=== PATIENT | female | born 1970 | race Caucasian/White ===

== ENCOUNTER → 2018-12-16 | Day surgery (SDC) | payer BC ==
[~2018-12-16] MED LIST: BACITRACIN 50,000 UNIT VIAL ONE; CEFAZOLIN SOD 1 GM/NS 50ML 50 ML IV ONE; DEXAMETHASONE SOD PHOS INJ 4 MG/ML VIAL ONE; FENTANYL CITRATE/PF 100MCG/2 ML INJ ONE; KETOROLAC TROMETHAMINE 30 MG/ML VIAL ONE; LIDOCAINE HCL 2% LOCAL INJ 5 ML SDV VIAL INJ ONE; MEPERIDINE HCL INJ 25 MG/ML VIAL ONE; MIDAZOLAM HCL 2 MG/2 ML VIAL ONE; ONDANSETRON HCL INJ 2MG/ML 2ML 2 MG/ML VIAL ONE; PROPOFOL IV EMULSION 10 MG/ML 20 ML VIAL ONE; ROCURONIUM BROMIDE 10 MG/ML 5ML VIAL ONE; SEVOFLURANE INHAL SOLN 250 ML PEN BTL ONE; TAMOXIFEN CITRA20 MG PO
--- OUTSIDE RECORDS SUMMARY | 2018-12-16 06:37 | XMS REPORT ---
Author Author [facility] Address Unknown Phone Unavailable Care Team Providers Care Auto Inspector Name Role Phone Unavailable Unavailable Payers Payer Name Policy Type Policy Number Effective Date Expiration Date Problems This patient has no known problems. Allergies, Adverse Reactions, Alerts Allergy Name Allergy Type Status Severity Reaction(s) Onset Date Inactive Date Treating Clinician Comments adhesive DA Active AK 2017-06-24 00:00:00 Medications This patient has no known medications.
--- OUTSIDE RECORDS SUMMARY | 2018-12-16 06:37 | XMS REPORT | Clinical Summary ---
Author Author [facility] Address Unknown Phone Unavailable Care Team Providers Care Printing Plate Setter Name Role Phone Jaelyn Tucker MD PCP Allergies Comments Active Allergy Reactions Severity Noted Date Adhesive Tape-Silicones 09/22/2016 Medications End Date Status Medication Sig Dispensed Refills Start Date Active furosemide (LASIX) 20 MG Take 20 mg by 0 tablet mouth daily. Active tamoxifen (NOLVADEX) 20 0 MG chemo tablet 6 Active VYVANSE 30 mg capsule Take 30 mg by 0 mouth once 7 daily. Active montelukast (SINGULAIR) Take 10 mg by 1 10 mg tablet mouth daily. 8 Active AFLURIA QUAD [id number], TO BE 0 PF, 60 mcg/0.5 mL syringe ADMINISTERED 8 BY PHARMACIST FOR IMMUNIZATION 10/01/2018 Discontinued dextroamphetamine-ampheta Take 10 mg by 0 mine (ADDERALL) 10 mg mouth 2 (two) tablet times a day. 01/15/2018 Discontinued tamsulosin (FLOMAX) 0.4 Take 1 30 capsule 0 mg capsule,extended capsule (0.4 7 release 24hr mg total) by mouth daily. Active Problems Problem Noted Date History of UTI 02/12/2017 Kidney stones 01/28/2017 Hydronephrosis with urinary obstruction due to renal calculus 01/28/2017 Acute pyelonephritis 01/28/2017 Encounters Care Team Description Date Type Specialty Jono Joy MA 10/08/2018 Telephone Obstetrics and Gynecology Debbie Ho MD Well woman exam with routine gynecological exam (Primary Dx) 10/01/2018 Office Visit Obstetrics and Gynecology Pili Damico RN Cyst of right ovary (Primary Dx) 04/22/2018 Orders Only Obstetrics and Gynecology Aguila Bansal MA 01/27/2018 Telephone Obstetrics and Gynecology Pili Damico RN 01/25/2018 Telephone Obstetrics and Gynecology Robbi Cross MD Cervical lesion (Primary Dx); Use of tamoxifen (Nolvadex); Personal history of breast cancer; Pre-procedure lab exam 01/21/2018 Office Visit Obstetrics and Gynecology Robbi Cross MD Cyst of right ovary 01/15/2018 Procedure visit Obstetrics and Gynecology Robbi Cross MD RLQ abdominal pain (Primary Dx); Pap smear for cervical cancer screening; Use of tamoxifen (Nolvadex); Cyst of right ovary; Lesion of cervix 01/15/2018 Office Visit Obstetrics and Gynecology after 12/15/2017 Family History Medical History Relation Name Comments Cancer Cousin Maternal Anal Cousin No Known Problems Father No Known Problems Mother Breast cancer Other Paternal cousin Breast cancer Paternal Aunt Relation Name Status Comments Cousin Maternal Alive Cousin Father Alive Mother Alive Other Paternal Alive cousin Paternal Aunt Paternal Grandmother Social History Date Tobacco Use Types Packs/Day Years Used Never Smoker Smokeless Tobacco: Never Used Tobacco Cessation: Counseling Given: Yes Alcohol Use Drinks/Week oz/Week Comments Yes once month Sex Assigned at Date Recorded Not on file Industry Job Start Date Occupation Not on file Not on file Not on file Travel End Travel History Travel Start No recent travel history available. Last Filed Vital Signs Time Taken Vital Sign Reading 10/01/2018 11:30 AM CDT Blood Pressure 95/66 10/01/2018 11:30 AM CDT Pulse 106 01/21/2018 3:18 PM BLOOD BANK SUPERVISOR Temperature 37 C (98.6 F) - Respiratory Rate - - Oxygen Saturation - - Inhaled Oxygen - Concentration 10/01/2018 11:30 AM CDT Weight 55.8 kg (123 lb) 10/01/2018 11:30 AM CDT Height 152.4 cm (5') 10/01/2018 11:30 AM CDT Body Mass Index 24.02 Plan of Treatment Health Maintenance Due Date Last Done Comments CERVICAL CANCER SCREENING 1991 INFLUENZA VACCINE 06/30/2018 Procedures Comments Procedure Name Priority Date/Time Associated Diagnosis HPV MRNA E6/E7 REFLEX Routine 10/01/2018 HPV 16, 18/45 (REFLEX) 12:18 PM CDT THINPREP TIS PAP Routine 10/01/2018 12:18 PM CDT POC , URINE Routine 01/21/2018 Pre-procedure lab exam 3:56 PM BLOOD BANK SUPERVISOR TISSUE, SPECIMEN B Routine 01/21/2018 3:54 PM BLOOD BANK SUPERVISOR SURGICAL PATHOLOGY Routine 01/21/2018 Cervical lesion REQUEST 3:54 PM BLOOD BANK SUPERVISOR Use of tamoxifen (Nolvadex) Personal history of breast cancer TISSUE, SPECIMEN A Routine 01/21/2018 3:54 PM BLOOD BANK SUPERVISOR BIOPSY CERVIX Routine 01/21/2018 Cervical lesion 3:00 PM BLOOD BANK SUPERVISOR US PELVIS COMPLETE (AMB Routine 01/15/2018 Cyst of right ovary IN-CLINIC ONLY) 11:18 AM BLOOD BANK SUPERVISOR HPV MRNA E6/E7 REFLEX Routine 01/15/2018 HPV 16, 18/45 (REFLEX) 10:10 AM BLOOD BANK SUPERVISOR THINPREP TIS PAP Routine 01/15/2018 10:10 AM BLOOD BANK SUPERVISOR PAP W/AGE BASED SCREENING Routine 01/15/2018 RLQ abdominal pain PROTOCOLS 10:10 AM BLOOD BANK SUPERVISOR Pap smear for cervical cancer screening Use of tamoxifen (Nolvadex) after 12/15/2017 Results * HPV mRNA E6/E7 REFLEX HPV 16, 18/45 (10/01/2018 12:18 PM CDT) Only the most recent of 2 results within the time period is included. HPV mRNA e6/e7 Not Detected Not Detected [facility] Comment: WIN This test was performed using the APTIMA HPV Assay ([employer] This assay detects E6/E7 viral messenger RNA (mRNA) from 14 high-risk HPV types (16,18,31,33,35,39,45,51,52,56 ,58,59,66,68). The analytical performance characteristics of this assay have been determined by [facility]. The modifications have not been cleared or approved by the FDA. This assay has been validated pursuant to the CLIA regulations and is used for clinical purposes. Resulting Agency Comment Performing Organization Information: Site ID: [id number] Name: [facility] Address: [address] [place] [phone] Director: Vinod Jordan Performing Organization Address [facility] Phone Number YISSEL TELLES [place] [phone] * THINPREP TIS PAP (10/01/2018 12:18 PM CDT) Only the most recent of 2 results within the time period is included. Clinical information None given [facility] [place] Date of last menstrual NONE GIVEN [facility] period CARRILL[place] Prev. pap: NONE GIVEN [facility] [place] Prev. bx: NONE GIVEN [facility] [place] Source [facility] [place] Statement of adequacy Comment: [facility] Satisfactory for evaluation. [place] Endocervical/transformation zone component present. Age and/or menstrual status not provided Interpretation/result: Comment: Negative for [facility] intraepithelial lesion or [place] malignancy. Comment Comment: [facility] This Pap test has been [place] evaluated with computer assisted technology. Fine Chemicals Operator Comment: [facility] LLL,CT(ASCP) [place] CT screening location: [place] [id number] Comment Comment: [facility] EXPLANATORY NOTE: [place] The Pap is a screening test for cervical cancer. It is not a diagnostic test and is subject to false negative and false positive results. It is most reliable when a satisfactory sample, regularly obtained, is submitted with relevant clinical findings and history, and when the Pap result is evaluated along with historic and current clinical information. Resulting Agency Comment Performing Organization Information: Site ID: [id number] Name: [facility] Address: [address] [place] [phone] Director: Vinod Jordan Performing Organization Address City/[facility] Phone Number YISSEL TELLES [address] [phone] * POC , urine (01/21/2018 3:56 PM BLOOD BANK SUPERVISOR) test urine, POC Negative QC done No Specimen Urine * Tissue, Specimen B (01/21/2018 3:54 PM BLOOD BANK SUPERVISOR) Source Comment: [facility] Cervix [place] AT 9:00 Procedure Comment: Biopsy [facility] [place] Gross description: Comment: [facility] Cervix 9 o'clock, received in [place] formalin, verified as to the patient's name and consists of one fragment(s) of rubbery, hare-rivera, glistening tissue, measuring 0.55 x 0.2 x 0.1 cm.TS, one block. SK 01/21/2018 Micro description Comment: [facility] Microscopic examination [place] supports the above diagnosis. Diagnosis Comment: [facility] Squamous mucosa with reactive [place] squamous changes. No evidence of dysplasia or malignancy. Comment Comment: [facility] There is no previous abnormal [place] pap smear available in our files for review with the current specimen. If this is in error, contact the laboratory to request a review. Resulting Agency Comment Performing Organization Information: Site ID: [id number] Name: [facility] Address: [address] [place] [phone] Director: Vinod Jordan MD Performing Organization Address [facility] Hospitalcode [place] [address] * TISSUE, SPECIMEN A (01/21/2018 3:54 PM BLOOD BANK SUPERVISOR) Source Comment: [facility] Cervix [place] AT 5:00 Procedure Comment: Biopsy [facility] [place] Gross description: Comment: [facility] Cervix 5 o'clock, received in [place] formalin, verified as to the patient's name and consists of one fragment(s) of rubbery, hare-rivera, glistening tissue, measuring 0.2 x 0.1 x 0.1 cm.TS, one block. Gross exam(s) performed at: [facility] [address] [phone] Swing Grinder: VINOD JORDAN M.D. Micro description Comment: [facility] Microscopic examination [place] supports the above diagnosis. Diagnosis Comment: [facility] Cervical mucosa with reactive [place] squamous changes in a background of acute and chronic inflammation, no evidence of dysplasia or malignancy. Resulting Agency Comment Performing Organization Information: Site ID: [id number] Name: [facility] Address: [address] [place] [phone] Director: Vinod Jordan MD Performing Organization Address [facility] Hospitalcode [place] [address] * Surgical pathology request (01/21/2018 3:54 PM BLOOD BANK SUPERVISOR) Clinical information Comment: None given [facility] [place] Pathologist Comment: [facility] Vinod Jordan MD, [facility] Certified in Anatomic Pathology, [phone] (electronic signature) Specimen Tissue Resulting Agency Comment Performing Organization Information: Site ID: [id number] Name: [facility] Address: [address] [place] [address] Director: Vinod Jordan MD Performing Organization Address City/State/Zipcode Phone Number YISSEL TELLES [place] [address] [place] [phone] * Biopsy cervix (01/21/2018 3:00 PM BLOOD BANK SUPERVISOR) Narrative Performed At Robbi Cross MD 01/21/20184:44 PM Biopsy cervix Date/Time: 01/21/2018 3:27 PM Performed by: ROBBI CROSS Authorized by: ROBBI CROSS Consent: Written consent obtained. Consent given by: patient Patient understanding: patient states understanding of the procedure being performed Patient consent: the patient's understanding of the procedure matches consent given Procedure consent: procedure consent matches procedure scheduled Relevant documents: relevant documents present and verified Test results: test results available and properly labeled Patient identity confirmed: verbally with patient Time out: Immediately prior to procedure a "time out" was called to verify the correct patient, procedure, equipment, desktop support consultant and site/side marked as required. Preparation: Patient was prepped and draped in the usual sterile fashion. Local anesthesia used: no Anesthesia: Local anesthesia used: no Sedation: Patient sedated: no Patient tolerance: Patient tolerated the procedure well with no immediate complications Comments: No acetowhitening on acetic acid application At 5 o' clock the biopsy drained copius mucus discharge, likely nabothian cyst * US Pelvis Complete (HMSJ and AMB In-Clinic ONLY) (01/15/2018 11:18 AM BLOOD BANK SUPERVISOR) Narrative Performed At [facility] Uterus: 9.6cm Normal essure tubes visualized within uterus Endometrium: 1.45mm Right Ovary: 3.2cm 2.9cm simple right ovarian cyst with adjacent free fluid Left Ovary: 2cm Bilateral adnexa normal. Performing Organization Address City/[facility]/Zipcode Phone Number [facility] [address] [place] [address] * PAP W/AGE BASED SCREENING PROTOCOLS (01/15/2018 10:10 AM BLOOD BANK SUPERVISOR) Comment Comment: [facility] This order for age-based [facility]IGIST cervical cancer and STI II screening follows ACOG guidelines(PB 168, 140, UYS895). See individual assays for performing site location. Specimen Cervical Resulting Agency Comment Performing Organization Information: Site ID: [id number] Name: [facility] Address: [address] [place] [address] Director: Dr. Fuad Sandoval Performing Organization Address City/State/[facility] Phone Number YISSEL BOBO [address] [place] [address] II after 12/15/2017 Insurance Payer Benefit Subscriber ID Type Phone Address Plan / Group BCBS BCBS xxxxxxxxxxxx PPO CHOICE PPO/ADRIAN BABIN PPO Advance Directives Patient has advance care planning documents on file. For more information, thanh perez contact: Win Davis [address] [place] [address]
[2018-12-16 08:25] LABS: BASOPHILS % 0.5 % (0.0-1.0); EOSINOPHILS % 0.6 % (0.0-6.0); HEMOGLOBIN 12.8 g/dL (12.0-16.0); LYMPHOCYTES # (AUTO) 2.1 (1.0-3.2); LYMPHOCYTES % 31.5 % (18.0-39.1); MEAN CORPUSCULAR HEMOGLOBIN 31.4 pg (28-32); MEAN CORPUSCULAR HGB CONC 34.6 g/dL (31-35); MEAN CORPUSCULAR VOLUME 90.7 fL (81-99); MONOCYTES # (AUTO) 0.4 (0.2-0.8); MONOCYTES % 6.7 % (4.4-11.3); NEUTROPHILS % 60.4 % (38.7-80.0); PLATELET COUNT 234 x10e3/uL (140-360); RED BLOOD COUNT 4.08 x10e6/uL (3.6-5.1); RED CELL DISTRIBUTION WIDTH 12.2 % (11.7-14.4)
[2018-12-16 08:39] LABS: INR 0.93; PARTIAL THROMBOPLASTIN TIME 26.6 seconds (23.8-35.5); PROTHROMBIN TIME 13.3 seconds (11.9-14.5)
[2018-12-16 08:45] LABS: ALANINE AMINOTRANSFERASE 15 IU/L (0-55); ALBUMIN 3.9 g/dL (3.5-5.0); ALBUMIN/GLOBULIN RATIO 1.5 (0.8-2.0); ALKALINE PHOSPHATASE 46 IU/L (40-150); ANION GAP 13.9 mmol/L (8-16); BLOOD UREA NITROGEN 11 mg/dL (7-26); BUN/CREATININE RATIO 16 (6-25); CALCIUM 8.8 mg/dL (8.4-10.2); CARBON DIOXIDE 19 mmol/L (22-29); CHLORIDE 109 mmol/L (98-107); CREATININE, SERUM 0.68 mg/dL (0.57-1.11); EST GLOMERULAR FILTRATION RATE > 60 ML/MIN (60-); GLUCOSE 89 mg/dL (74-118); POTASSIUM 3.9 mmol/L (3.5-5.1); SODIUM 138 mmol/L (136-145)
[2018-12-16 15:15] VITALS: BP 98/64
--- NOTE | 2019-01-06 00:44 | Operative Report ---
DATE OF PROCEDURE: December 16, 2018 PREOPERATIVE DIAGNOSES 1. History of breast cancer. 2. Acquired absence of bilateral breasts. 3. Bilateral old silicone gel breast implant submuscular. 4. Animation deformity of bilateral breasts. POSTOPERATIVE DIAGNOSES 1. History of breast cancer. 2. Acquired absence of bilateral breasts. 3. Bilateral old silicone gel breast implant submuscular. 4. Animation deformity of bilateral breasts. PROCEDURES PERFORMED 1. Removal of bilateral old intact silicone gel breast implants submuscular. 2. Revision of bilateral breast reconstruction. 3. Bilateral breast capsulotomies. 4. Bilateral breast reconstruction with new silicone gel breast implants subglandular Natrelle INSPIRA Cohesive SCF 450 mL implants. SN number on the right [id number] and SN number on the left [id number]. Regenerative tissue matrix: [employer] FlexHD Pliable 16 x 20 cm, SN number [id number]. ANESTHESIA: General endotracheal. INDICATIONS FOR SURGERY: This is a 48-year-old female who several years ago was diagnosed with breast cancer and underwent bilateral mastectomies and reconstruction with tissue expanders and silicone gel implants and AlloDerm. Patient is currently presenting complaining of animation deformity of bilateral breasts and desires removal of bilateral old intact silicone gel breast implants submuscular, revision of bilateral breast reconstruction, bilateral capsulotomies, and bilateral breast reconstruction with new silicone gel cohesive implant subglandular and regenerative tissue matrix. Risks, alternatives, and possible complications of the above procedure were explained to the patient. These include, but are not limited to bleeding, infection, scarring, skin flap necrosis, capsular contracture, breast asymmetry, failure of exposure of silicone gel breast implants, wound dehiscence, unsatisfactory esthetic result, and possible need for further surgery. The patient had an opportunity to ask questions and have her questions answered and agreed to proceed with the proposed procedure. PROCEDURE IN DETAIL: The patient was marked in the preoperative holding area. She was then taken to the operating room and placed supine on the operating table. After adequate general anesthesia, the patient's bilateral breasts were prepped and draped in the usual surgical fashion. The preoperative markings were re-checked. An incision was made along the previous mastectomy incision and the old mastectomy scar was excised, which was thick and hypertrophic. Tissue was dissected down to breast capsule and the old silicone gel breast implants were removed. They were [place] 440 mL textured anatomically shaped breast implants. The pectoralis major muscle was then identified and revision of breast reconstruction was performed by dissecting the pectoralis major muscle from the mastectomy skin flap superiorly and then suturing the pectoralis major muscle back down onto the chest wall where it had been previously elevated with interrupted 3-0 Vicryl sutures. Lateral capsulotomies were performed since the patient appeared to have capsular contracture from the previous old silicone gel breast implants. Bilateral breast reconstruction was then performed with new subglandular silicone gel implants. After placing a sizer and inflating it to 450 mL, a 450 mL silicone gel cohesive implant Natrelle INSPIRA SCF was selected. [employer] FlexHD Pliable regenerative tissue matrix 16 x 20 cm was then opened and cut in two, and then after rinsing it in antibiotic solution, it was sutured to the superior portion of the chest wall with interrupted 2-0 PDS sutures. The silicone gel implant was then placed subglandular on top of the pectoralis major muscle and under the regenerative tissue matrix. A #10 flat NELIDA was placed exiting laterally and sutured in place with 2-0 nylon suture and regenerative tissue matrix was sutured to the previous AlloDerm along the inferior portion of the breast with interrupted 2-0 PDS sutures. The mastectomy incision were closed with 2 layers of interrupted of 3-0 Vicryl sutures and a running subcuticular 3-0 PDO Quill suture. Similar procedure was performed on the opposite breast. The same implant was used, 450 mL Cohesive Natrelle INSPIRA SCF silicone gel implant and the other portion of the FLF FlexHD regenerative tissue matrix was used on the opposite side. At the end of the case, the 2 breasts appeared to be symmetric. All skin flaps appeared viable. The incisions were covered with Xeroform, ABD pads, and the patient's chest was wrapped with a large 6-inch Jack wrap. She tolerated the procedure well. There were no immediate complications. The needle and instrument counts were correct at the end of the case. She was transferred extubated to the recovery room. Job#: [id number] FAIZA
== END | disposition home or self-care (01) ==
LOC: OR 06:34
PROVIDERS: ATTEND Plastic Surgery
DX: N65.0 Deformity of reconstructed breast (principal); Z85.3 Personal history of malignant neoplasm of breast; Z90.13 Acquired absence of bilateral breasts and nipples; T85.44XA Capsular contracture of breast implant, initial encounter; Y83.4 Other reconstructive surgery as the cause of abnormal reaction of the patient, or of later complication, without mention of misadventure at the time of the procedure; Z88.8 Allergy status to other drugs, medicaments and biological substances
CPT/HCPCS: 19328; 19340; 19370; 36415; 80053; 81025; 85025; 85610; 85730; 88302; C1781; J0690; J1100; J1885; J2001; J2175; J2250; J2405; J2704; L8600

== ENCOUNTER → 2019-02-24 | Day surgery (SDC) | payer BC ==
[~2019-02-24] MED LIST changes: +ACETAMINOPHEN 1000 MG/100 ML IV ONE; -BACITRACIN 50,000 UNIT VIAL ONE; +BUPIVACAINE 0.25% 30ML SDV INJ ONE; +EPINEPHRINE HCL 1:1000 1ML 1 MG/ML AMP ONE; +HYDROCODONE/APAP 7.5MG-325MG 1 EA TAB ONE; -KETOROLAC TROMETHAMINE 30 MG/ML VIAL ONE; +LIDOCAINE HCL 1% 30ML-PF VIAL ONE; -MEPERIDINE HCL INJ 25 MG/ML VIAL ONE; +MORPHINE SULFATE INJ 4 MG/ML INJ 1ML ONE
--- OUTSIDE RECORDS SUMMARY | 2019-02-24 05:58 | XMS REPORT | Clinical Summary ---
Author Author [facility] Address Unknown Phone Unavailable Care Team Providers Care Global Compensation Manager Name Role Phone Jaelyn Tucker MD PCP [...] tablet mouth daily. 8 Active AFLURIA QUAD [id number], TO BE 0 PF, 60 mcg/0.5 mL syringe ADMINISTERED 8 BY PHARMACIST FOR IMMUNIZATION 10/01/2018 Discontinued dextroamphetamine-ampheta Take 10 mg by 0 mine (ADDERALL) 10 mg mouth 2 (two) tablet times a day. Active Problems Problem Noted Date History of [...] Dx) 04/22/2018 Orders Only Obstetrics and Gynecology after 02/23/2018 Family History Medical History Relation Name Comments [...] 95/66 10/01/2018 11:30 AM CDT Pulse 106 - Temperature - - Respiratory Rate - - Oxygen Saturation [...] TIS PAP Routine 10/01/2018 12:18 PM CDT after 02/23/2018 Results * HPV mRNA E6/E7 REFLEX HPV 16, 18/45 (10/01/2018 12:18 PM CDT) HPV mRNA e6/e7 Not Detected Not Detected [employer] Comment: POTH This test was performed using the APTIMA HPV Assay ([employer] This assay detects E6/E7 viral messenger RNA (mRNA) from 14 high-risk HPV types (16,18,31,33,35,39,45,51,52,56 ,58,59,66,68). The analytical performance characteristics of this assay have been determined by [employer]. The modifications have not been cleared or approved by the FDA. This assay has been validated pursuant to the CLIA regulations and is used for clinical purposes. Resulting Agency Comment Performing Organization Information: Site ID: RGA [facility]: [facility] Address: [address] [place] [phone] Director: Ebony Elliott Performing Organization Address [facility] Servicescode Phone Number YISSEL [employer] KOKI POTH [address] [place] [address] * THINPREP TIS PAP (10/01/2018 12:18 PM CDT) Clinical information None given [facility] POTH Date of last menstrual NONE GIVEN [facility] period CARRILLO Prev. pap: NONE GIVEN [facility] POTH Prev. bx: NONE GIVEN [facility] POTH Source ECVX [employer] POTH Statement of adequacy Comment: [facility] Satisfactory for evaluation. POTH Endocervical/transformation zone component present. Age and/or menstrual status not provided Interpretation/result: Comment: Negative for [employer] intraepithelial lesion or POTH malignancy. Comment Comment: [employer] This Pap test has been POTH evaluated with computer assisted technology. General Office Dispatcher Comment: [employer] LLL,CT(ASCP) POTH CT screening location: [address], [employer] [address] Comment Comment: [employer] EXPLANATORY NOTE: POTH The Pap is a screening test for [...] Performing Organization Information: Site ID: RGA Name: [facility] Address: [address] [place] [phone] Director: Ebony Elliott Performing Organization Address [facility] Servicescode Phone Number YISSEL TELLES POTH [address] [place] [phone] after 02/23/2018 Insurance Payer Benefit Subscriber ID Type Phone Address Plan / Group BCBS BCBS xxxxxxxxxxxx PPO CHOICE PPO/FEDERA L EMPL PPO Advance Directives Patient has advance care planning documents on file. For more information, thanh perez contact: Win Davis [address] [place] [address]
[2019-02-24 07:21] LABS: BASOPHILS # (AUTO) 0.1 (0.0-0.1); BASOPHILS % 1.2 % (0.0-1.0); EOSINOPHILS # (AUTO) 0.1 (0.0-0.4); EOSINOPHILS % 1.4 % (0.0-6.0); HEMATOCRIT 38.9 % (34.2-44.1); HEMOGLOBIN 12.8 g/dL (12.0-16.0); LYMPHOCYTES # (AUTO) 1.8 (1.0-3.2); LYMPHOCYTES % 35.6 % (18.0-39.1); MEAN CORPUSCULAR HEMOGLOBIN 30.1 pg (28-32); MEAN CORPUSCULAR HGB CONC 32.9 g/dL (31-35); MEAN CORPUSCULAR VOLUME 91.5 fL (81-99); MONOCYTES # (AUTO) 0.4 (0.2-0.8); NEUTROPHILS # (AUTO) 2.8 (2.1-6.9); NEUTROPHILS % 54.6 % (38.7-80.0); PLATELET COUNT 233 x10e3/uL (140-360); RED BLOOD COUNT 4.25 x10e6/uL (3.6-5.1); RED CELL DISTRIBUTION WIDTH 12.8 % (11.7-14.4)
[2019-02-24 07:25] LABS: INR 0.93
[2019-02-24 07:26] LABS: PARTIAL THROMBOPLASTIN TIME 26.9 seconds (23.8-35.5)
[2019-02-24 07:31] LABS: ALANINE AMINOTRANSFERASE 18 IU/L (0-55); ALBUMIN 3.5 g/dL (3.5-5.0); ALBUMIN/GLOBULIN RATIO 1.2 (0.8-2.0); ALKALINE PHOSPHATASE 46 IU/L (40-150); ANION GAP 10.2 mmol/L (8-16); BLOOD UREA NITROGEN 9 mg/dL (7-26); BUN/CREATININE RATIO 14 (6-25); CALCIUM 8.7 mg/dL (8.4-10.2); CARBON DIOXIDE 22 mmol/L (22-29); CHLORIDE 109 mmol/L (98-107); CREATININE, SERUM 0.64 mg/dL (0.57-1.11); EST GLOMERULAR FILTRATION RATE > 60 ML/MIN (60-); GLUCOSE 90 mg/dL (74-118); POTASSIUM 4.2 mmol/L (3.5-5.1); SODIUM 137 mmol/L (136-145)
[2019-02-24 13:45] VITALS: BP 120/70
--- NOTE | 2019-03-14 20:19 | Operative Report ---
DATE OF PROCEDURE: 02/24/2019 SURGEON: Gali Harmon MD PREOPERATIVE DIAGNOSES: 1. History of breast cancer. 2. Acquired absence of bilateral breasts. POSTOPERATIVE DIAGNOSES: 1. History of breast cancer. 2. Acquired absence of bilateral breasts. PROCEDURES PERFORMED: Bilateral breast reconstruction with fat transfer, a 90 mL of fat transfer to the right breast and 100 mL of fat transfer to the left breast. ANESTHESIA: LMA. INDICATIONS FOR SURGERY: This is a 48-year-old female, who has history of breast cancer and is status post bilateral mastectomies and reconstruction with silicone gel implants. The patient is currently presenting for bilateral breast reconstruction with fat transfer. The risks, alternatives, and possible complications of the above procedure were explained to the patient. These include, but are not limited to bleeding, infection, scarring, breast asymmetry, wound dehiscence, firmness, lumpiness, failure of fat transfer, excessive skin exposure, failure of cohesive silicone gel implants, skin irregularities, fat necrosis, unsatisfactory esthetic results, and possible need for further surgery as well as pulmonary embolism and deep vein thrombosis. The patient had an opportunity to ask questions and all of her questions answered and agreed to proceed with proposed procedure. PROCEDURE IN DETAIL: The patient was marked in the preoperative holding area. She was then taken to the operating room and placed supine on the operating table. After adequate general anesthesia, the patient's bilateral breasts, abdomen, and bilateral flanks were prepped and draped in the usual surgical fashion. Attention was then turned to the patient's abdomen and bilateral flanks, those were the donor site areas for the fat transfer. Tumescent fluid was injected first in the patient's abdomen through two small incisions along the lower abdominal line. A 1000 mL of tumescent was injected in the patient's abdomen. Through the same incision, a 500 mL of tumescent was injected in each of the patient's flanks. After adequate time was give for the tumescent to act, suction-assisted lipectomy was undertaken with #3 mm cannula. A 600 mL of aspirate were removed from the patient's abdomen and 400 mL of aspirate were removed from each of the patient's flank areas. All the removed aspirate was purified using the [employer] fat purification system. Approximately, 190 mL of purified fat was obtained. With a 16-gauge blunt tip cannula, 90 mL of fat was transferred to the patient's right breast mostly in the superior and medial portion of the breast, but also some along the inferior portion of the breast. On the left breast, 100 mL of fat was transferred again mostly in the medial and superior portion, but also some in the inferior lower portion of the breast. After completion of the fat transfer, both breasts were covered with Xeroform, ABD pads, and wrapped with a large 6-inch Jack wrap. The patient's donor sites for the fat transfer were closed with single stitch of 5-0 chromic and covered with ABD pads and an abdominal binder. The patient tolerated the procedure well. There were no immediate complications. The needle and instrument counts were correct at the end of the case and she was transferred and extubated to the recovery room. MD SYED Watson/DHEERAJ /[id number]
== END | disposition home or self-care (01) ==
LOC: OR 05:55
PROVIDERS: ATTEND Plastic Surgery
DX: Z42.1 Encounter for breast reconstruction following mastectomy (principal); Z85.3 Personal history of malignant neoplasm of breast; Z90.13 Acquired absence of bilateral breasts and nipples; Z98.82 Breast implant status
CPT/HCPCS: 19366; 36415; 80053; 81025; 85025; 85610; 85730; J0131; J0171; J0690; J1100; J2001 ×2; J2250; J2270; J2405; J2704

== ENCOUNTER → 2020-09-27 | Day surgery (SDC) | payer BC, OTHER ==
[2020-09-24 16:10] LABS: BASOPHILS % 0.5 % (0.0-1.0); EOSINOPHILS # (AUTO) 0.1 (0.0-0.4); EOSINOPHILS % 1.1 % (0.0-6.0); HEMOGLOBIN 12.7 g/dL (12.0-16.0); LYMPHOCYTES # (AUTO) 2.5 (1.0-3.2); LYMPHOCYTES % 37.7 % (18.0-39.1); MEAN CORPUSCULAR HEMOGLOBIN 30.5 pg (28-32); MEAN CORPUSCULAR HGB CONC 32.6 g/dL (31-35); MEAN CORPUSCULAR VOLUME 93.5 fL (81-99); MONOCYTES # (AUTO) 0.5 (0.2-0.8); MONOCYTES % 7.5 % (4.4-11.3); NEUTROPHILS # (AUTO) 3.5 (2.1-6.9); NEUTROPHILS % 52.9 % (38.7-80.0); PLATELET COUNT 225 x10e3/uL (140-360); RED BLOOD COUNT 4.17 x10e6/uL (3.6-5.1); RED CELL DISTRIBUTION WIDTH 12.8 % (11.7-14.4)
[2020-09-24 16:20] LABS: INR 0.94; PARTIAL THROMBOPLASTIN TIME 25.8 seconds (23.8-35.5); PROTHROMBIN TIME 13.1 seconds (11.9-14.5)
[2020-09-24 16:27] LABS: ALANINE AMINOTRANSFERASE 15 IU/L (0-55); ALBUMIN 3.8 g/dL (3.5-5.0); ALBUMIN/GLOBULIN RATIO 1.4 (0.8-2.0); ALKALINE PHOSPHATASE 54 IU/L (40-150); ANION GAP 13.1 mmol/L (8-16); BLOOD UREA NITROGEN 18 mg/dL (7-26); BUN/CREATININE RATIO 27 (6-25); CALCIUM 8.9 mg/dL (8.4-10.2); CARBON DIOXIDE 23 mmol/L (22-29); CHLORIDE 108 mmol/L (98-107); CREATININE, SERUM 0.66 mg/dL (0.57-1.11); EST GLOMERULAR FILTRATION RATE > 60 ML/MIN (60-); GLUCOSE 101 mg/dL (74-118); POTASSIUM 4.1 mmol/L (3.5-5.1); SODIUM 140 mmol/L (136-145)
[~2020-09-27] MED LIST changes: +ACETAMINOPHEN 1000 MG/100 ML 100 ML IV ONE; -ACETAMINOPHEN 1000 MG/100 ML IV ONE; +GLYCOPYRROLATE INJ 0.2 MG/ML VIAL ONE; -HYDROCODONE/APAP 7.5MG-325MG 1 EA TAB ONE; +IBUPROFEN 800MG/ 200ML 200 ML IV ONE; +LIDOCAINE HCL (LTA) 4 ML SOLN ONE; -LIDOCAINE HCL 1% 30ML-PF VIAL ONE; +LIDOCAINE HCL 1% LOCAL INJ 20 ML VIAL ONE; +LIDOCAINE HCL 2% JELLY 5 ML TUBE ONE; -MORPHINE SULFATE INJ 4 MG/ML INJ 1ML ONE; +NEOSTIGMINE 1 MG/ML 10ML VIAL ONE; +ROCURONIUM BROMIDE 10 MG/ML 5ML VIAL IV ONE; -ROCURONIUM BROMIDE 10 MG/ML 5ML VIAL ONE; +SCOPOLAMINE 1.5 MG PATCH ONE
[2020-09-27 17:15] VITALS: BP 125/66
== END | disposition home or self-care (01) ==
LOC: OR 09:39
PROVIDERS: ATTEND Plastic Surgery
DX: Z42.1 Encounter for breast reconstruction following mastectomy (principal); Z85.3 Personal history of malignant neoplasm of breast; Z90.13 Acquired absence of bilateral breasts and nipples; Z91.048 Other nonmedicinal substance allergy status; Z87.01 Personal history of pneumonia (recurrent); Z01.810 Encounter for preprocedural cardiovascular examination; Z01.812 Encounter for preprocedural laboratory examination; Z20.828 Contact with and (suspected) exposure to other viral communicable diseases
CPT/HCPCS: 15771; 15772 ×3; 19380; 36415; 80053; 81025; 85025; 85610; 85730; 93005; J0131; J0171; J0690; J1100; J2001 ×3; J2250; J2405; J2704; J2710; J3010; U0002